=== PATIENT | male | born 1990 | race Caucasian/White ===

== ENCOUNTER 2017-12-04 11:46 | Day surgery (SDC) | payer OTHER ==
[~2017-12-04 11:46] MED LIST: PER PO
--- NOTE | 2017-12-04 12:28 | RADIOLOGY IMAGING REPORT ---
FACILITY: [facility] PATIENT NAME: Juan Burnett : 1990 MR: [id number] V: [id number] EXAM DATE: ORDERING PHYSICIAN: STANISLAW BARAJAS TECHNOLOGIST: Location: [facility] Patient: Juan Burnett : 1990 Visit/Account:[id number] Date of Sevice: 12/04/2017 FOOT 3 VIEW RIGHT Indication: Injury with lawnmower. Injury to big toe. Comparison: None Available Findings: 3 views of the right foot were obtained. There is a defect of the soft tissues involving the distal portion of the great toe. In addition to t he defect of the soft tissue, there is a portion of the distal phalanx which appears absent. The emma ical margins are ill-defined. Findings are consistent with partial amputation of the great toe in thi s location. There are flecks of gas within the soft tissues. No radiopaque foreign body. Joint spaces are maintained. No other soft tissue defect is seen. IMPRESSION: 1. Partial amputation of the distal portion of the right great toe including the soft tissues and the distal phalanx. 2. Flecks of gas within the great toe soft tissues. 3. No definitive radiopaque foreign body. Report Dictated By: Christoph Hooper at 12/04/2017 12:21 PM Report E-Signed By: Christoph Hooper at 12/04/2017 12:24 PM WSN:[id number]
[2017-12-04] MEDS ORDERED: fentaNYL CITR 100 MCG/2 ML AMP IVP ONE (12:40)
[2017-12-04] MEDS ORDERED: ceFAZolin 1 GM VIAL IVP ONE (12:40)
[2017-12-04] MEDS ORDERED: NORMOSOL R SOLN(*) 1000 ML BAG 1,000 ML IV ONE (13:00)
[2017-12-04] MEDS ORDERED: FAMOTIDINE(*) 20MG/50ML PREMIX 50 ML IVPB ONE (13:00)
[2017-12-04 13:02] LABS: PLATELET COUNT, AUTOMATED 236 K/uL (150-450)
[2017-12-04 13:12] LABS: INR 1.1
[2017-12-04] MEDS ORDERED: LIDOCAINE 1%MDV(*)200 MG/20 ML 1 ML ONE (13:46)
[2017-12-04] MEDS ORDERED: BUPIVACAIN 0.25% INJ 50ML VIAL ONE (13:46)
[2017-12-04] MEDS ORDERED: NEOMYCIN/POLYMYX/BACITR 30 GM TP ONE (14:10)
[2017-12-04] MEDS ORDERED: DIAZEPAM 10 MG TAB PO ONE (14:10)
[2017-12-04 15:03] VITALS: BP 115/72
[2017-12-04] MEDS ORDERED: HYDR-385 PO (15:14)
[2017-12-04] MEDS ORDERED: CEPH500T7 PO (15:15)
[2017-12-04 15:23] VITALS: BP 120/77
--- NOTE | 2017-12-04 16:39 | HISTORY AND PHYSICAL ---
DATE OF ADMISSION: December 04, 2017 CHIEF COMPLAINT Right foot pain with open wound at great toe HISTORY OF PRESENT ILLNESS Mr. Burnett is a 27-year-old gentleman who was out mowing his lawn today. He was apparently barefoot at the time and while negotiating a tight area of the lawn and trying to turn the lawnmower, he accidentally got his right foot caught by the blade of the lawnmower as it briefly passed under the mcdonnell. The lawnmower blade caused an oblique amputation of the great toe, removing the majority of the nail plate just distal to the lunula in an oblique fashion from proximal dorsal to volar distal, removing the tuft of the bone in the long oblique fashion as well. He was brought to the emergency room where he was evaluated by the ER physician, and I was contacted for the open wound. I came down to the ER to see him. He was in relatively good spirits at the time considering the situation. His pain was still under reasonably good control as the block was still partially effective. His ER evaluation included a digital block with an examination of the bone to determine if it was in fact an open fracture, and it certainly was. It had been irrigated a bit at the time. He was given 1 g of Kefzol in preparation for his trip to the operating room. PAST MEDICAL HISTORY Noncontributory. PAST SURGICAL HISTORY * Right hand surgery. * Left shoulder surgery. ALLERGIES 1. MORPHINE, causing respiratory distress. 2. PIROXICAM, causing hives. CURRENT MEDICATIONS See ER record FAMILY HISTORY Noncontributory, without anesthetic difficulties. REVIEW OF SYSTEMS Otherwise noncontributory. PHYSICAL EXAMINATION The injury occurred at approximately 11:00 this morning. He had last eaten pancakes and diamond at around 9:00. He was afebrile with stable vital signs. There was no associated injury aside from the toe injury noted previously. The adjacent second toe was not hit by the blade. ASSESSMENT AND PLAN I contacted Dr. Mcdonnell regarding his n.p.o. status, and Dr. Mcdonnell felt it would be safest if we would wait until approximately eight hours after that type of meal , although with an open fracture one could make an argument that it would be worthwhile to proceed. However, I felt a reasonable alternative would be to do it under a straight local as long as Mr. Burnett was willing to do that. So I chatted with him about that and he said that he would be okay with it as long as he received an oral anxiolytic. He was given 10 mg of Valium with plans to go to the operating room for the revision amputation, and most likely a complete ablation of the nail plate since the obliquity would require removal of the germinal matrix as the vast majority of the sterile matrix was done. The Valium did not actually arrive until he was heading into the OR, so that was a bit of a delay, but we still got into him by the time we were working. His operative report will be dictated under a separate note. YANN
--- NOTE | 2017-12-06 04:13 | OPERATIVE REPORT 1 ---
EVENT DATE: December 04, 2017 SURGEON: Justin Swartz MD ANESTHESIA: Local SHOE COVERER: CODY Bauer PREOPERATIVE DIAGNOSIS Traumatic amputation of right great toe tip in an oblique fashion, leaving no support for the nail plate. POSTOPERATIVE DIAGNOSIS Traumatic amputation of right great toe tip in an oblique fashion, leaving no support for the nail plate. PROCEDURE PERFORMED 1. Revision amputation of right great toe. 2. Proximal cut back to removal germinal matrix, as the nail would no longer have any adhesion. ESTIMATED BLOOD LOSS 0 IVF Minimal. TOURNIQUET TIME None (Large Tourni-Cot was used). SPECIMENS No specimens. COMPLICATIONS No complications. IMPLANTS No implants. SUMMARY OF PROCEDURE The patient was brought into the operating room. He had been given Valium. He was then given a digital block, after which his right foot was prepped and draped in the usual sterile fashion. We covered the lesser toes with Coban, applied a Tourni-Cot (size large) and then secured that proximally with Coban so it would not slide down. We then assessed the wound and irrigated extensively. Once we had cleaned it all up and things were down to adequate tissue for visualization, I elected to use an 11 blade and a 15 blade to trim up the necrotic tissue on the margins of the impact site. There was a small amount of germinal matrix remaining that unfortunately gave him the risk of a nail spike. There was no sterile matrix remaining, and the entire tuft was gone , but in addition to that there was a sharp obliquity remaining of the bone. I used a 15 blade to debride around the bone. We identified the digital nerves and arteries and cut them back with bipolar cautery. After having removed a bit of the terminal phalanx to bring it to a rounded surface, we then reassessed the closure, and it really would not close. The germinal matrix had been removed, as had the undersurface of the eponychium so that he would not have any of the lustrous material forming spindles of growth at the amputation site. With this all removed, we then defatted the tip a little bit so that we would still have adequate padding at the tip of the bone, but had a better chance of closing, and now it was much closer to closing. I ended up trimming another 3 mm of bone, and then we were able to close it skin to skin. We did this after irrigating extensively, and then removed the dog ears at the margins to allow for a more smooth closure. The wound was fully closed in doing this, and we had already used bipolar cautery where necessary on the visible vessels, so at this point the Tourni-Cot was removed. No additional bleeding was noted. He was given a dry sterile dressing and a postop shoe, and he was transferred to the recovery area in stable condition. YANN
--- NOTE | 2017-12-18 10:08 | ER Report ---
History and Physical Time Seen By MD: 12:00 Hx. of Stated Complaint: PATIENT WAS MOWING HIS LAWN AND RAN HIS FOOT OVER WITH THE LAWNMOWER. DISTAL TIP OF TOE IS GONE HPI/ROS CHIEF COMPLAINT: Right 1st digit partial amputation HISTORY OF PRESENT ILLNESS: Patient is a 27-year-old male here after running over his right 1st distal digit. Patient was reportedly mowing his long without shoes on when the incident occurred. Tetanus is up-to-date. Patient is hemodynamically stable complaining of localized pain to the digit. Dorsal aspect of the distal digit is amputated. Patient denies further injury at this time, fevers, chills. REVIEW OF SYSTEMS: Respiratory: No cough, no dyspnea. Cardiovascular: No chest pain, no palpitations. Gastrointestinal: No vomiting, no abdominal pain. Musculoskeletal: No back pain. Extremities: + Right distal 1st digit partial amputation/pain Allergies: Coded Allergies: morphine (Verified Allergy, Unknown, 06/16/17) piroxicam (Verified Allergy, Unknown, 06/16/17) Home Meds Reported Medications Cephalexin 500 Mg Tab (KEFLEX 500 MG TAB) 500 Mg Tablet, 500 MG PO Q6H, #20 TAB 0 Refills 12/04/17 Hydrocodone Bit/Acetaminophen (HYDROCODON-ACETAMINOPHEN 5-325) 1 Each Tablet, 1- 2 EACH PO Q4-6H Y for BREAKTHROUGH PAIN, #30 TAB 0 Refills 12/04/17 Hx Smoking: No Hx Substance Use Disorder: No Hx Alcohol Use: No Physical Exam General Appearance: The patient is alert, has no immediate need for airway protection and no current signs of toxicity. + discomfort due to foot pain Eyes: Pupils equal and round no injection. Respiratory: Chest is non tender, lungs are clear to auscultation. Cardiac: regular rate and rhythm [ ] Gastrointestinal: Abdomen is soft and non tender, no masses, bowel sounds normal. Musculoskeletal: Neck: Neck is supple and non tender. Extremities + Right 1st digit dorsal partial amputation with bleeding Skin: No rashes or lesions. DIFFERENTIAL DIAGNOSIS: After history and physical exam differential diagnosis was considered for Open vs closed fracture of toe, partial amputation Medical Decision Making Data Points Laboratory Hematology Test 12/04/17 12:54 Red Blood Count 5.35 M/uL (4.00-5.60) Mean Corpuscular Volume 86.8 fL (80.0-96.0) Mean Corpuscular Hemoglobin 29.9 pg (26.0-33.0) Mean Corpuscular Hemoglobin Concent 34.5 g/dL (32.0-36.0) Red Cell Distribution Width 14.4 % (11.5-14.5) Mean Platelet Volume 7.2 fL (7.2-11.1) Neutrophils (%) (Auto) 45.1 % (39.4-72.5) Lymphocytes (%) (Auto) 40.8 % (17.6-49.6) Monocytes (%) (Auto) 12.7 % (4.1-12.4) Eosinophils (%) (Auto) 1.0 % (0.4-6.7) Basophils (%) (Auto) 0.4 % (0.3-1.4) Nucleated RBC Relative Count (auto) 0.0 /100WBC Neutrophils # (Auto) 2.2 K/uL (2.0-7.4) Lymphocytes # (Auto) 2.0 K/uL (1.3-3.6) Monocytes # (Auto) 0.6 K/uL (0.3-1.0) Eosinophils # (Auto) 0.0 K/uL (0.0-0.5) Basophils # (Auto) 0.0 K/uL (0.0-0.1) Nucleated RBC Absolute Count (auto) 0.00 K/uL Prothrombin Time 14.3 seconds (12.0-14.4) Prothromb Time International Ratio 1.10 Activated Partial Thromboplast Time 26 seconds (23-35) Sodium Level 139 mmol/L (137-145) Potassium Level 3.4 mmol/L (3.5-5.0) Chloride Level 103 mmol/L (98-107) Carbon Dioxide Level 26 mmol/L (22-30) Blood Urea Nitrogen 23 mg/dl (9-21) Creatinine 1.20 mg/dl (0.66-1.25) Glomerular Filtration Rate Calc > 60.0 Random Glucose 93 mg/dl (75-110) Calcium Level 8.9 mg/dl (8.4-10.2) Total Bilirubin 1.0 mg/dl (0.2-1.3) Aspartate Amino Transf (AST/SGOT) 29 U/L (0-35) Alanine Aminotransferase (ALT/SGPT) 31 U/L (0-56) Alkaline Phosphatase 38 U/L (0-126) Total Protein 4.8 gm/dl (6.3-8.2) Albumin 3.6 g/dl (3.5-5.0) Chemistry Test 12/04/17 12:54 White Blood Count 4.9 k/uL (4.5-11.0) Red Blood Count 5.35 M/uL (4.00-5.60) Hemoglobin 16.0 g/dL (14.0-18.0) Hematocrit 46.4 % (42.0-52.0) Mean Corpuscular Volume 86.8 fL (80.0-96.0) Mean Corpuscular Hemoglobin 29.9 pg (26.0-33.0) Mean Corpuscular Hemoglobin Concent 34.5 g/dL (32.0-36.0) Red Cell Distribution Width 14.4 % (11.5-14.5) Platelet Count 236 K/uL (150-450) Mean Platelet Volume 7.2 fL (7.2-11.1) Neutrophils (%) (Auto) 45.1 % (39.4-72.5) Lymphocytes (%) (Auto) 40.8 % (17.6-49.6) Monocytes (%) (Auto) 12.7 % (4.1-12.4) Eosinophils (%) (Auto) 1.0 % (0.4-6.7) Basophils (%) (Auto) 0.4 % (0.3-1.4) Nucleated RBC Relative Count (auto) 0.0 /100WBC Neutrophils # (Auto) 2.2 K/uL (2.0-7.4) Lymphocytes # (Auto) 2.0 K/uL (1.3-3.6) Monocytes # (Auto) 0.6 K/uL (0.3-1.0) Eosinophils # (Auto) 0.0 K/uL (0.0-0.5) Basophils # (Auto) 0.0 K/uL (0.0-0.1) Nucleated RBC Absolute Count (auto) 0.00 K/uL Prothrombin Time 14.3 seconds (12.0-14.4) Prothromb Time International Ratio 1.10 Activated Partial Thromboplast Time 26 seconds (23-35) Glomerular Filtration Rate Calc > 60.0 Calcium Level 8.9 mg/dl (8.4-10.2) Total Bilirubin 1.0 mg/dl (0.2-1.3) Aspartate Amino Transf (AST/SGOT) 29 U/L (0-35) Alanine Aminotransferase (ALT/SGPT) 31 U/L (0-56) Alkaline Phosphatase 38 U/L (0-126) Total Protein 4.8 gm/dl (6.3-8.2) Albumin 3.6 g/dl (3.5-5.0) Coagulation Test 12/04/17 12:54 Prothrombin Time 14.3 seconds Prothromb Time International Ratio 1.10 Activated Partial Thromboplast Time 26 seconds EKG/Imaging Imaging Location: [facility] [place] Patient: Juan Burnett : 1990 Visit/Account:[id number] Date of [facility]: 12/04/2017 FOOT 3 VIEW RIGHT Indication: Injury with lawnmower. Injury to big toe. Comparison: None Available Findings: 3 views of the right foot were obtained. There is a defect of the soft tissues involving the distal portion of the great toe. In addition to the defect of the soft tissue, there is a portion of the distal phalanx which appears absent. The cortical margins are ill-defined. Findings are consistent with partial amputation of the great toe in this location. There are flecks of gas within the soft tissues. No radiopaque foreign body. Joint spaces are maintained. No other soft tissue defect is seen. IMPRESSION: 1. Partial amputation of the distal portion of the right great toe including the soft tissues and the distal phalanx. 2. Flecks of gas within the great toe soft tissues. 3. No definitive radiopaque foreign body. ED Course/Re-evaluation ED Course Patient is a 27-year-old male here after running out of her partially amputating his right distal 1st digit dorsal aspect. I performed a digital block of the great toe and probed the wound after washing out thoroughly with saline solution. X-ray imaging and physical exam determine that there is an open partial amputation and open fracture of the distal tuft. I discussed the patient with Dr. Swartz with orthopedics who accepted the patient for further intervention. Tetanus was up-to-date. Patient was given prophylactic antibiotics , analgesia. Patient was in stable condition at time of admission for orthopedic intervention. Procedure Digital block of the [place] toe the right foot using 1% lidocaine solution. The toe was cleaned using an alcohol prep pad and was injected utilizing approximately 3 mL of lidocaine. The wound was probed and properly irrigated using sterile saline solution. Hemostasis was achieved. Decision to Disposition Date: Dec 04, 2017 Decision to Disposition Time: 13:00 Depart Departure Impression: Primary Impression: Partial traumatic amputation of right great toe Condition: Condition Unchanged Disposition: ADMIT FROM ER TO OR Departure Forms: Medications Reconciliation, Patient Portal Information, ER Transition Record Patient Instructions: Cephalexin (By mouth), Hydrocodone/Acetaminophen (By mouth), Toe Amputation (DC) FRANCOIS ZIMMERMAN DO Dec 18, 2017 10:08
== END 2017-12-04 15:30 | disposition home or self-care (01) ==
LOC: ER 11:52 → OR 13:42
PROVIDERS: ATTEND Orthopaedic Surgery Hand Surgery
DX: S98.121A Partial traumatic amputation of right great toe, initial encounter (principal); W26.8XXA Contact with other sharp object(s), not elsewhere classified, initial encounter
CPT/HCPCS: 28124; 73630; 85025; 85610; 85730; 86850; 86900; 86901; 99285; J0690; J2001; J3490; 82040; 82247; 82310; 82374; 82435; 82565; 82947; 84075; 84132; 84155; 84295; 84450; 84460; 84520